=== PATIENT | male | born 1995 | race Caucasian/White ===

== ENCOUNTER 2016-11-26 09:51 | Emergency (ER) | payer OTHER ==
[~2016-11-26] VITALS: Ht 180.3 cm; Wt 95.7 kg
[2016-11-26 09:57] VITALS: TEMP 36.8; Ht 180.3 cm; Wt 95.7 kg
[2016-11-26 09:58] VITALS: O2SAT 99
[2016-11-26 10:38] LABS: BASO % 0.4 %; BASO ABS # 0.03 K/uL (0-0.2); COMPLETE YES; EOS % 2.1 %; HEMATOCRIT 44.1 % (42-52); IG% 0.2 %; LYMPH % 40.1 %; LYMPH ABS # 3.23 K/uL (1.2-3.4); MEAN CELL VOLUME 84.6 fL (80-100); MEAN CORPUSCULAR HEMOGLOBIN 31.1 pg (25-34); MEAN CORPUSCULAR HGB CONC 36.7 g/dl (32-36); MEAN PLATELET VOLUME 10.3 fL (7.4-10.4); MONO % 5.7 %; NEUT % 51.5 %; PLATELET COUNT 353 K/uL (130-400); RED BLOOD COUNT 5.21 M/uL (4.7-6.1); WHITE BLOOD COUNT 8.06 K/uL (4.8-10.8)
[2016-11-26 10:55] LABS: ALT/SGPT 42 U/L (12-78); AST/SGOT 22 U/L (15-37); BLOOD UREA NITROGEN 13 mg/dl (7-18); BUN/CREATININE RATIO 10.5 (10-20); CALCIUM 9.1 mg/dl (8.5-10.1); CARBON DIOXIDE 25 mmol/L (21-32); CHLORIDE 103 mmol/L (98-107); GLUCOSE 166 mg/dl (70-99); POTASSIUM 3.3 mmol/L (3.5-5.1); SODIUM 139 mmol/L (136-145)
[2016-11-26 11:06] LABS: ALB/GLOB RATIO 1.3 (0.9-2); ALKALINE PHOSPHATASE 75 U/L (45-117); CKMB/CK RATIO 0.5 (0-3.0)
--- NOTE | 2016-11-26 11:10 | DIAGNOSTIC IMAGING REPORT ---
CHEST ONE VIEW PORTABLE HISTORY: ED atypical chest pain. Short of breath., near syncope. COMPARISON: None. FINDINGS: The lungs are clear. Cardiac silhouette is normal in size. No pleural effusions. No pneumothorax. IMPRESSION: No acute process. Electronically signed by: Oscar Villagomez M.D. 11/26/2016 11:08 AM Dictated Date/Time: 11/26/2016 11:08 AM
[2016-11-26] MEDS ORDERED: SODIUM CHLORIDE 0.9% 1000ML 1,000 ML IV STA (11:59)
[2016-11-26] MEDS ORDERED: POTASSIUM CHLORIDE 10 MEQ TABCR PO STA (12:00)
[2016-11-26 12:10] LABS: URINE APPEARANCE CLEAR (CLEAR); URINE BILIRUBIN NEG (NEG); URINE COLOR YELLOW; URINE EPITHELIAL CELL AUTO 20-30 /lpf (0-5); URINE NITRITE NEG (NEG); URINE SPECIFIC GRAVITY 1.018 (1.000-1.030); UROBILINOGEN NEG (NEG); ZZUR CULT IF INDIC CLEAN CATCH NO
--- NOTE | 2016-11-26 12:13 | EMERGENCY ROOM VISIT NOTE ---
History Report prepared by Yesenia: Saad Flaherty Under the Supervision of: Dr. Fabrice Johnson M.D. First contact with patient: 11:07 Chief Complaint: SHORTNESS OF BREATH Stated Complaint: SHORTNESS OF BREATH Nursing Triage Summary: Pt presents via BLS litter from home for eval of sob, elevated heart rate, left sided chest pain, tunnel vision, numbness over body. Pt states four episodes of these feelings that started approx 0900. Pt reports pain in upper back "for months from work." Denies cough or recent illness. History of Present Illness The patient is a 21 year old male who presents to the Emergency Room with complaints of recurrent shortness of breath episodes that started to occur this morning. The patient notes that these episodes are less than one minute in duration, and he had 5 episodes in total so far. The episodes resolve on their own. He was getting ready for bed when the first episode occurred, as he works operations supervisor 2nd shift. He also notes that he feels lightheaded during these episodes. He also notes a global tingling sensation. The patient denies any recent illness or travel. He is not on any daily medications and denies any major medical problems. The patient is an occasional smoker. The patient's mother states that he drinks in excess. He denies other drug use. The patient denies chest pain, cough, back pain, or other symptoms. Source of History: patient, parent Onset: this morning Position: other (respiratory) Quality: other (short of breath) Timing: other (recurrent) Associated Symptoms: No back pain, No chest pain, No cough Note: Positive lightheadedness. Review of Systems See HPI for pertinent positives & negatives. A total of 10 systems reviewed and were otherwise negative. Past Medical & Surgical Medical Problems: (1) No known health problems Family History No pertinent family history Social History Smoking Status: Former Smoker Alcohol Use: heavy Housing Status: lives with family Current/Historical Medications No Active Prescriptions or Reported Meds Allergies Coded Allergies: Cefprozil (Unverified Allergy, Intermediate, UNKNOWN, CHILDHOOD ALLERGY., 11/26/16) Physical Exam Vital Signs Date Time Temp Pulse Resp B/P Pulse Ox O2 Delivery O2 Flow Rate FiO2 11/26/16 13:09 73 18 150/86 98 Room Air 11/26/16 12:20 93 18 143/91 100 Room Air 11/26/16 10:22 69 18 142/64 99 Room Air 89 136/76 91 118/78 11/26/16 09:58 99 Room Air 11/26/16 09:57 36.8 103 18 158/87 98 Room Air 11/26/16 09:56 94 Physical Exam GENERAL: Patient is a healthy-appearing well-nourished HEAD: Normocephalic atraumatic EYES: Ocular movements intact pupils equal and react to light OROPHARYNX mucous membranes are moist no exudates present no erythema or edema present NECK: Supple no nuchal rigidity CHEST: Good equal expansion LUNGS: Clear and equal to auscultation CARDIAC: Normal S1 and S2 ABDOMEN: Soft nontender no guarding BACK: No CVA tenderness EXTREMITIES: No pain upon palpation normal muscle strength in all groups no clubbing cyanosis or edema NEURO: Patient is following commands is answering questions appropriately. Alert and oriented x3 Cranial Nerves 2-12 grossly intact Medical Decision & Procedures ER Provider Diagnostic Interpretation: X-ray results as stated below per interpretation by me and the radiologist: CHEST ONE VIEW PORTABLE HISTORY: ED atypical chest pain. Short of breath., near syncope. COMPARISON: None. FINDINGS: The lungs are clear. Cardiac silhouette is normal in size. No pleural effusions. No pneumothorax. IMPRESSION: No acute process. Electronically signed by: Oscar Villagomez M.D. 11/26/2016 11:08 AM Dictated Date/Time: 11/26/2016 11:08 AM Laboratory Results 11/26/16 10:16 Red Blood Count 5.21, Mean Corpuscular Volume 84.6, Mean Corpuscular Hemoglobin 31.1, Mean Corpuscular Hemoglobin Concent 36.7, Mean Platelet Volume 10.3, Neutrophils (%) (Auto) 51.5, Lymphocytes (%) (Auto) 40.1, Monocytes (%) (Auto) 5.7, Eosinophils (%) (Auto) 2.1, Basophils (%) (Auto) 0.4, Neutrophils # (Auto) 4.15, Lymphocytes # (Auto) 3.23, Monocytes # (Auto) 0.46, Eosinophils # (Auto) 0.17, Basophils # (Auto) 0.03 11/26/16 10:16 Test 11/26/16 10:16 11/26/16 11:40 White Blood Count 8.06 K/uL (4.8-10.8) Red Blood Count 5.21 M/uL (4.7-6.1) Hemoglobin 16.2 g/dL (14.0-18.0) Hematocrit 44.1 % (42-52) Mean Corpuscular Volume 84.6 fL (80-100) Mean Corpuscular Hemoglobin 31.1 pg (25-34) Mean Corpuscular Hemoglobin Concent 36.7 g/dl (32-36) Platelet Count 353 K/uL (130-400) Mean Platelet Volume 10.3 fL (7.4-10.4) Neutrophils (%) (Auto) 51.5 % Lymphocytes (%) (Auto) 40.1 % Monocytes (%) (Auto) 5.7 % Eosinophils (%) (Auto) 2.1 % Basophils (%) (Auto) 0.4 % Neutrophils # (Auto) 4.15 K/uL (1.4-6.5) Lymphocytes # (Auto) 3.23 K/uL (1.2-3.4) Monocytes # (Auto) 0.46 K/uL (0.11-0.59) Eosinophils # (Auto) 0.17 K/uL (0-0.5) Basophils # (Auto) 0.03 K/uL (0-0.2) RDW Standard Deviation 39.1 fL (36.4-46.3) RDW Coefficient of Variation 12.6 % (11.5-14.5) Immature Granulocyte % (Auto) 0.2 % Immature Granulocyte # (Auto) 0.02 K/uL (0.00-0.02) D-Dimer < 190 ug/L FEU (0-500) Anion Gap 11.0 mmol/L (3-11) Est Creatinine Clear Calc Drug Dose 114.0 ml/min Estimated GFR () 98.9 Estimated GFR (Non- 85.3 BUN/Creatinine Ratio 10.5 (10-20) Calcium Level 9.1 mg/dl (8.5-10.1) Total Bilirubin 0.4 mg/dl (0.2-1) Aspartate Amino Transf (AST/SGOT) 22 U/L (15-37) Alanine Aminotransferase (ALT/SGPT) 42 U/L (12-78) Alkaline Phosphatase 75 U/L (45-117) Total Creatine Kinase 399 U/L (39-308) Creatine Kinase MB 1.9 ng/ml (0.5-3.6) Creatine Kinase MB Ratio 0.5 (0-3.0) Troponin I < 0.015 ng/ml (0-0.045) Total Protein 7.9 gm/dl (6.4-8.2) Albumin 4.5 gm/dl (3.4-5.0) Globulin 3.4 gm/dl (2.5-4.0) Albumin/Globulin Ratio 1.3 (0.9-2) Thyroid Stimulating Hormone (TSH) 2.150 uIu/ml (0.300-4.500) Urine Color YELLOW Urine Appearance CLEAR (CLEAR) Urine pH 7.0 (4.5-7.5) Urine Specific [place] 1.018 (1.000-1.030) Urine Protein NEG (NEG) Urine Glucose (UA) NEG (NEG) Urine Ketones NEG (NEG) Urine Occult Blood NEG (NEG) Urine Nitrite NEG (NEG) Urine Bilirubin NEG (NEG) Urine Urobilinogen NEG (NEG) Urine Leukocyte Esterase NEG (NEG) Urine WBC (Auto) 1-5 /hpf (0-5) Urine RBC (Auto) 0-4 /hpf (0-4) Urine Hyaline Casts (Auto) 1-5 /lpf (0-5) Urine Epithelial Cells (Auto) 20-30 /lpf (0-5) Urine Bacteria (Auto) NEG (NEG) Labs reviewed by ED physician. Medications Administered Medications (Trade) Dose Ordered Sig/Harshal Route Start Time Stop Time Status Last Admin Dose Admin Sodium Chloride (Nss 1000ml) 1,000 ml @ 999 mls/hr Q1H1M STAT IV 11/26/16 11:59 11/26/16 12:59 DC 11/26/16 12:19 999 MLS/HR Potassium Chloride (Klor-Con M10) 40 meq NOW STAT PO 11/26/16 12:00 11/26/16 12:01 DC 11/26/16 12:20 40 MEQ ECG Indication: SOB/dyspnea Rate (beats per minute): 65 Rhythm: normal sinus Findings: no acute ischemic change, prolonged QT, no ectopy ED Course 1130: The patient was evaluated by the [facility]. 1159: NSS 1000 ml @ 999 mls/hr. 1200: Potassium Chloride 40 meq PO. 1208: Past medical records reviewed. The patient was evaluated in room B2. A complete history and physical examination was performed. 1310: Reassessed the patient. Discussed the findings with him. I urged him to follow up with cardiology. He verbalized understanding and agreement. Medical Decision Differential diagnosis: Etiologies such as infections, reactive airway disease, pneumonia, pneumothorax , COPD, CHF, cardiac ischemia, pulmonary embolism, musculoskeletal, gastrointestinal, as well as others were entertained. This is a 21-year-old male who presents emergency department complaining of shortness of breath episodes. Patient reports she's had 6 episodes this morning. He is not having any episodes and was observed for a total 4 hours in the emergency department. I will note that the patient has a prolonged QT on his EKG and for this reason I did discuss the case with Dr. Echeverria who agreed to see the patient as an outpatient. The patient is hypokalemic and his potassium was repleted here in the emergency department. The patient also bit his drinks and reports heavy drinking over the weekend. I discussed the fact that the patient needs follow-up with cardiology as well as the fact that he should hold off on drinking until that follow-up. Patient and father were in agreement with the treatment plan. Impression Primary Impression: Dyspnea Additional Impression: Hypokalemia Scribe Attestation The scribe's documentation has been prepared under my direction and personally reviewed by me in its entirety. I confirm that the note above accurately reflects all work, treatment, procedures, and medical decision making performed by me. Departure Information Dispostion Home / Self-Care Prescriptions No Active Prescriptions or Reported Meds Referrals No Doctor, Assigned (PCP) Forms HOME CARE DOCUMENTATION FORM, IMPORTANT VISIT INFORMATION, School Instructions, Work Instructions Patient Instructions Anxiety Body Response, My [facility] Additional Instructions Follow up with DR Echeverria's office You have been examined and treated today on an emergency basis only. This is not a substitute for, or an effort to provide, complete comprehensive medical care. It is impossible to recognize and treat all injuries or illnesses in a single emergency department visit. It is therefore important that you follow up closely with your PCP. Call as soon as possible for an appointment. Thank you for your time and consideration. I look forward to speaking with you again soon. Please don't hesitate to call us if you have any questions. Problem Qualifiers Primary Impression: Dyspnea Dyspnea type: dyspnea on exertion Qualified Codes: R06.09 - Other forms of dyspnea
[2016-11-26 12:14] LABS: MANUAL MICROSCOPIC REQUIRED? NO; REVIEW REQ? NO
[2016-11-26 13:09] VITALS: BP 150/86; PULSE 73; O2SAT 98
== END 2016-11-26 13:13 | disposition home or self-care (01) ==
LOC: C.EDB 09:53
DX: R06.00 Dyspnea, unspecified (principal); E87.6 Hypokalemia; Z87.891 Personal history of nicotine dependence

== ENCOUNTER 2017-08-12 23:50 | Emergency (ER) | payer OTHER ==
[~2017-08-12] VITALS: Ht 180.3 cm; Wt 100.2 kg
[2017-08-12 23:55] VITALS: BP 166/93; PULSE 92; TEMP 37.1; O2SAT 98; Ht 180.3 cm; Wt 100.2 kg
[2017-08-13] MEDS ORDERED: XYLOCAINE 1%/SOD BICARB 20 ML VIAL INFIL ONE (00:15)
--- NOTE | 2017-08-13 07:17 | DIAGNOSTIC IMAGING REPORT ---
LEFT THUMB 3 VIEWS CLINICAL HISTORY: Laceration. FINDINGS: 3 views of the left thumb are obtained. No prior studies are available for comparison at the time of dictation. The skeletal structures are well mineralized. No fracture is seen. The first metacarpophalangeal and interphalangeal joints are well-maintained. No radiodense foreign body is identified. Mild soft tissue swelling is suggested. IMPRESSION: No acute bony abnormality is seen in the left thumb. Electronically signed by: Noah Higgins M.D. 08/13/2017 7:16 AM Dictated Date/Time: 08/13/2017 7:15 AM
--- NOTE | 2017-08-13 21:16 | EMERGENCY ROOM VISIT NOTE ---
ED Visit Note First contact with patient: 23:58 CHIEF COMPLAINT: Finger laceration HISTORY OF PRESENT ILLNESS: This 22-year-old male patient presents to the emergency department after cutting the left first finger while holding a hatchet about one hour ago. The bleeding has stopped. Denies weakness or numbness of the finger. The patient has full range of motion of the fingers. The patient rates the pain as dull and 3/10. The patient denies any other injuries. The patient's tetanus shot is reportedly up to date. REVIEW OF SYSTEMS: A 6 system review of systems was completed with positives and pertinent negatives listed in the HPI. ALLERGIES: Cefprozil MEDICATIONS: See EMR PMH: No chronic medical disease SOCIAL HISTORY: Lives locally PHYSICAL EXAM: Vital Signs: Reviewed Nurse's notes, vital signs stable. GENERAL : White male, in no acute distress, well developed, well nourished. SKIN: There is a 4.0 cm long laceration on the medial aspect of the left first finger. The edges gape apart with traction. There is no foreign material in the wound and it looks clean. There is mild bleeding. No deep structures such as tendons, bones, or significant blood vessels are seen in the base of the wound. Extension and flexion of the finger is full and strong. Full range of motion of the wrist and other fingers. Capillary refill less than 2 seconds. Normal sensation to light and sharp touch. LEFT THUMB 3 VIEWS CLINICAL HISTORY: Laceration. FINDINGS: 3 views of the left thumb are obtained. No prior studies are available for comparison at the time of dictation. The skeletal structures are well mineralized. No fracture is seen. The first metacarpophalangeal and interphalangeal joints are well-maintained. No radiodense foreign body is identified. Mild soft tissue swelling is suggested. IMPRESSION: No acute bony abnormality is seen in the left thumb. EMERGENCY DEPARTMENT COURSE: I examined the patient. Verbal consent was obtained to perform the procedure. Using sterile technique the wound was cleansed with Betadine. 4 ml of 1% buffered lidocaine was used to perform a digital block to anesthetize the patient. The area was sterilely draped. Once the patient was anesthetized, the wound was copiously irrigated under pressure with sterile saline. The wound was explored and there were no deep structures injured. The laceration was repaired using 6 simple interrupted 5-0 nylon sutures. The patient tolerated the procedure well. Hemostasis was achieved. The area was cleaned with sterile saline and dressed with bacitracin ointment and bandage. The patient was discharged home in good condition. DIAGNOSIS: Finger laceration DISCHARGE INSTRUCTIONS & TREATMENT: Keep wound clean and dry. Do not allow any crusting or dried blood to accumulate on sutures. If this occurs, use a 1:1 solution of hydrogen peroxide/water on a Q-tip to clean the wound. Use an antibiotic ointment for 3-4 days, then let wound dry. Suture removal in 10-12 days. Return sooner for any signs of infection (increasing redness, swelling, drainage). Ice and elevate for swelling and pain. Ibuprofen 600 mg and Tylenol 1000 mg every 6 hrs for pain. Keep covered when in sun until sutures removed then SPF 50 or higher for one year. Vitamin E oil if desired two weeks after suture removal for reduction of scar. Problem List Medical Problems: (1) No known health problems Status: Chronic Current/Historical Medications No Active Prescriptions or Reported Meds Allergies Coded Allergies: Cefprozil (Unverified Allergy, Intermediate, UNKNOWN, CHILDHOOD ALLERGY., 08/13/17) Vital Signs Date Time Temp Pulse Resp B/P (MAP) Pulse Ox O2 Delivery O2 Flow Rate FiO2 08/12/17 23:55 37.1 92 16 166/93 98 Room Air Departure Information Impression Primary Impression: Laceration of finger Dispostion Home / Self-Care Condition GOOD Prescriptions No Active Prescriptions or Reported Meds Referrals No Doctor, Assigned (PCP) Forms HOME CARE DOCUMENTATION FORM, IMPORTANT VISIT INFORMATION Patient Instructions [facility], ED Laceration All, ED Scar Tips to Minimize Additional Instructions Keep wound clean and dry. Do not allow any crusting or dried blood to accumulate on sutures. If this occurs, use a mild soap/water on a Q-tip to clean the wound. Do not use Peroxide to clean the wound as this can delay healing Use an antibiotic ointment like Bacitracin for 3-4 days, then let wound dry. You may bathe and shower as normal, but DO NOT SOAK the wound. Suture removal in about 10-12 days with your Family Doctor or in the ER. Wear your metal splint until the stitches are removed Return sooner for any signs of infection, increasing redness, swelling, or drainage.
== END 2017-08-13 02:12 | disposition home or self-care (01) ==
LOC: C.EDB 23:51 → C.EDC 08-13 02:12
DX: S61.211A Laceration without foreign body of left index finger without damage to nail, initial encounter (principal); W45.8XXA Other foreign body or object entering through skin, initial encounter